=== PATIENT | female | born 1935 | race Caucasian/White ===

== ENCOUNTER 2016-11-01 14:11 | Inpatient (IN) | payer OTHER ==
[~2016-11-01] VITALS: Ht 162.6 cm; Wt 65.0 kg
[2016-11-01] MEDS ORDERED: SOD CHLORIDE 0.9% 1,000 ML IV STA (14:45)
[2016-11-01 15:10] LABS: BASOPHILS % 0.5 % (0.0-2.0); EOSINOPHILS % 0.2 % (0.0-7.0); HEMATOCRIT 34.2 % (37.0-47.0); HEMOGLOBIN 11.2 g/dl (12.0-16.0); LYMPHOCYTES # 1.1 10^3/ul (0.8-2.9); LYMPHOCYTES % 12.5 % (15.0-51.0); MEAN CORPUSCULAR HEMOGLOBIN 29.8 pg (29.0-33.0); MEAN CORPUSCULAR HGB CONC 32.7 g/dl (32.0-37.0); MEAN PLATELET VOLUME 10.5 fl (7.4-10.4); MONOCYTE # 0.7 10^3/ul (0.3-0.9); MONOCYTES % 8.5 % (0.0-11.0); NEUTROPHIL # 6.8 10^3/ul (1.6-7.5); PLATELET COUNT 284 10^3/UL (140-415); RED BLOOD COUNT 3.76 10^6/ul (4.20-5.40); RED CELL DISTRIBUTION WIDTH 12.1 % (11.5-14.5); WHITE BLOOD COUNT 8.7 10^3/ul (4.8-10.8)
[2016-11-01 15:30] LABS: INR 1.04; PROTIME 13.6 Sec (12.2-14.2); PT RATIO 1.1
[2016-11-01] MEDS ORDERED: AMLO5TAB4 PO (15:32)
[2016-11-01] MEDS ORDERED: ASPI-664 PO (15:33)
[2016-11-01] MEDS ORDERED: BISA10SU75 PR (15:34)
[2016-11-01] MEDS ORDERED: ATOR40TA68 PO (15:34)
[2016-11-01] MEDS ORDERED: CYAN50TA PO (15:35)
[2016-11-01] MEDS ORDERED: FAMO20TA18 PO (15:35)
--- NOTE | 2016-11-01 15:40 | RADRPT ---
PROCEDURE: XR Chest. CLINICAL INDICATION: Abdominal Pain TECHNIQUE: Single frontal view of the chest was obtained COMPARISON: None FINDINGS: There are low lung volumes. The cardiomediastinal silhouette is within normal limits considering po rtable technique and low lung volumes. There are atherosclerotic calcifications of the thoracic aorta. Linear opacities at both lung bases likely represent atelectasis and / or scarring. No pneumothorax, significant pleural effusion, or parenchymal consolidation is identified. There are degenerative changes of the visualized spine. IMPRESSION: 1. Low lung volumes with mild bibasilar atelectasis and / or scarring. 2. Thoracic aortic atherosclerotic disease. RPTAT: PP Physician Norma Date Time Electronically viewed and signed by Physician Norma on 11/01/2016 15:39 /
[2016-11-01] MEDS ORDERED: NA P230E RC (15:41)
[2016-11-01] MEDS ORDERED: LACT1CAP57 PO (15:42)
[2016-11-01] MEDS ORDERED: LEVO50TA74 PO (15:42)
[2016-11-01] MEDS ORDERED: SENN-53 PO (15:43)
[2016-11-01] MEDS ORDERED: TRAM-40 PO (15:45)
[2016-11-01] MEDS ORDERED: ACET325T33 PO (15:47)
[2016-11-01] MEDS ORDERED: CHOL500010 PO (15:48)
[2016-11-01 15:50] LABS: ALBUMIN 3.7 g/dl (3.3-4.9); ALBUMIN/GLOBULIN RATIO 0.94; ANION GAP 17 (8-16); BILIRUBIN,INDIRECT 0.2 mg/dl (0-1.1); BILIRUBIN,TOTAL 0.2 mg/dl (0.2-1.3); BLOOD UREA NITROGEN 14 mg/dl (7-20); CALCIUM 9.9 mg/dl (8.4-10.2); CARBON DIOXIDE 31 mmol/L (21-31); CHLORIDE 96 mmol/L (97-110); GLUCOSE 138 mg/dl (70-220); POTASSIUM 4.4 mmol/L (3.5-5.1); SODIUM 140 mmol/L (135-144); TOTAL PROTEIN 7.6 g/dl (6.1-8.1)
[2016-11-01 15:51] LABS: ALANINE AMINOTRANSFERASE 30 IU/L (13-69); ALKALINE PHOSPHATASE 82 IU/L (42-121); ASPARTATE AMINO TRANSFERASE 33 IU/L (15-46)
[2016-11-01] MEDS ORDERED: TUBE5VIA3 ID ×2 (15:51→15:53)
[2016-11-01 16:01] LABS: ADD UMIC NO; UR ASCORBIC ACID NEGATIVE (NEGATIVE); UR BACTERIA FEW /HPF (NONE SEEN); UR BILIRUBIN (Dip) NEGATIVE (NEGATIVE); UR BLOOD (Dip) NEGATIVE (NEGATIVE); UR CLARITY SLIGHTLY CLOUDY (CLEAR); UR COLOR YELLOW (YELLOW); UR GLUCOSE (Dip) NEGATIVE (NEGATIVE); UR KETONES (Dip) NEGATIVE (NEGATIVE); UR LEUKOCYTE ESTERASE (Dip) NEGATIVE Leu/ul (NEGATIVE); UR MUCUS FEW /HPF (NONE SEEN); UR NITRITE (Dip) NEGATIVE (NEGATIVE); UR RBC 4 /HPF (0-5); UR SPECIFIC GRAVITY (Dip) 1.019 (1.003-1.030); UR TOTAL PROTEIN (Dip) NEGATIVE (NEGATIVE); UR UROBILINOGEN (Dip) 2+ mg/dL (NEGATIVE)
[2016-11-01 16:04] LABS: TROPONIN-I < 0.012 ng/ml (0.00-0.12)
--- NOTE | 2016-11-01 16:22 | RADRPT ---
PROCEDURE: CT Brain without contrast. CLINICAL INDICATION: Altered mental status. TECHNIQUE: A CT of the brain without contrast was performed utilizing axial sections from the skul l base through the vertex. The patient was scanned without intravenous contrast enhancement. Sagitta l and coronal reformatted images were obtained using the data from the axial images. Total exam DLP is 850.75 mGy-cm. CTDIvol is 43.12 mGy. One or more of the following dose reduction techniques were used: Automated exposure control, adjustment of the mA and/or kV according to patient size, use of iterative reconstruction technique. COMPARISON: None available. FINDINGS: There is ill-defined encephalomalacia in the left centrum semiovale consistent with old infarct. Th ere is an old infarct in the left belle radiata with a 1.1 x 0.9 cm region of low attenuation. The re is no other acute or chronic infarct. There is enlargement of the ventricles and subarachnoid spaces consistent with atrophy. There is decreased attenuation of the periventricular white matter consistent with microangiopathic ischemic change. There is no intracranial hemorrhage or space-occupying lesion. There are vascular calcifications consistent with atherosclerosis. There is no skull fracture or lytic lesion. IMPRESSION: 1. Atrophy. 2. Microangiopathic ischemic change. 3. Atherosclerosis. 4. 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 Otherwise unremarkable noncontrast CT scan of the brain. RPTAT: QQ .Mike Tan MD, Date Time Electronically viewed and signed by .Mike Tan MD, MD on 11/01/2016 16:21 .R/
[2016-11-01 17:10] LABS: AADO2 Arterial 3.2 mmHg (7.0-24.0); Allen Test ACCEPTAB; Arterial Base Excess 4.5 mmol/L (-3.0-3); Arterial COHb 0.3 % (0.0-3.0); Arterial Fraction of Oxyhgb 97.4 % (93.0-99.0); Arterial HCO3 29.7 mmol/L (22.0-26.0); Arterial MetHb 0.5 % (0.0-1.5); Arterial Total Hemglobin 11.7 g/dl (12.0-18.0); MODE NASAL CANNULA
--- NOTE | 2016-11-01 17:34 | ERA ---
ER Documentation Chief Complaint Date/Time DATE: 11/01/16 TIME: 17:20 Chief Complaint BIB RA FOR EVAL OF ALOC FROM SNF HPI 80-year-old elderly woman brought in by status. Nursing staff state she has been more sleepy than usual since this morning beginning about 6 hours prior to my evaluation. She has had no fevers or chills, no vomiting or diarrhea. HPI supplemented by reviewing snf records, speaking to EMS, nursing staff. Patient was transported here by EMS without further complications. ROS All systems reviewed and are negative except as per history of present illness. Medications Home Meds Reported Medications Tuberculin,Purif.prot.deriv. (Tubersol) 5 Tub Unit/0.1 Ml Vial, 5 TUB ID QHS, VIAL SCREENING FOR 1 DAY 2ND STEP PPD. START DATE 11/10/16,END DATE 11/11/16 11/01/16 Tuberculin,Purif.prot.deriv. (Tubersol) 5 Tub Unit/0.1 Ml Vial, 0.1 ML ID QHS, VIAL SCREENING FOR 1 DAY 1ST STEP PPD.READ IN 72H.IF NEGATIVE GIVE 2 STEP IN 7 DAYS FROM FIRST DOSE. END DATE 11/01/16 11/01/16 Cholecalciferol (Vitamin D3) 5,000 Unit Tablet, 5000 UNIT PO DAILY, TAB 11/01/16 Acetaminophen* (Tylenol*) 325 Mg Tablet, 650 MG PO Q4H Y for MILD PAIN LEVEL 1-3 , TAB OR T>100F 11/01/16 Tramadol Hcl* (Ultram*) 50 Mg Tablet, 50 MG PO Q4H Y for PAIN LEVEL 4-6/10, TAB AND Q DAY FOR PRIOR TO WOUND CARE 11/01/16 Sennosides* (Senna Lax*) 8.6 Mg Tablet, 1 TAB PO QHS, TAB HOLD IF>2LARGE BMS/DAY 11/01/16 Levothyroxine Sodium* (Levothyroxine Sodium*) 50 Mcg Tablet, 50 MCG PO BEFORE BREAKFAST, #30 TAB 11/01/16 Lactobacillus Rhamnosus* (Culturelle*) 1 Each Cap.sprink, 1 CAP PO BID, CAP 11/01/16 Na Phos,M-B/Na Phos,Di-Ba (Fleet Enema Extra) 230 Ml Enema, 118 ML RC Q72H, ENEMA 11/01/16 Famotidine* (Famotidine*) 20 Mg Tablet, 20 MG PO DAILY, #30 TAB 11/01/16 Cyanocobalamin* (Vitamin B-12*) 50 Mcg Tablet, 50 MCG PO DAILY, TAB 11/01/16 Bisacodyl* (Bisacodyl*) 10 Mg Supp, 10 MG ID Q48H, SUPP 11/01/16 Atorvastatin* (Atorvastatin*) 40 Mg Tablet, 40 MG PO QHS, #30 TAB 11/01/16 Aspirin* (Aspirin* EC) 81 Mg Tablet.dr, 81 MG PO DAILY, TAB 11/01/16 Amlodipine Besylate* (Norvasc*) 5 Mg Tablet, 5 MG PO DAILY, TAB HOLD IF SBP<110 OR HR<60 11/01/16 Allergies Allergies: Coded Allergies: No Known Allergy (Unverified , 11/01/16) PMhx/Soc Chronic encephalopathy, previous stroke, bedbound state, hypothyroidism, hypertension, recent scalp laceration post stapling 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) Hx Alcohol Use: No Hx Substance Use: No Hx Tobacco Use: No Smoking Status: Never smoker FmHx Family History: No diabetes Physical Exam Vitals Vital Signs Date Time Temp Pulse Resp B/P Pulse Ox O2 Delivery O2 Flow Rate FiO2 11/01/16 14:50 98.8 69 18 147/83 99 Nasal Cannula 2.0 11/01/16 14:31 98.3 83 19 141/63 100 Physical Exam GENERAL: Elderly, chronically debilitated woman, dehydrated, afebrile HEENT: Dry mucous membranes, pink conjunctiva, no cervical spine deformity NEURO: Dilated fixed left pupil, right pupil reactive to light, eyes closed, nonverbal, diffuse muscular wasting and extremity contractures, no facial asymmetry CARDIAC: Regular rate and rhythm, no murmurs rubs or gallops LUNGS: Clear bilaterally no wheezing crackles or stridor ABDOMEN: Soft nontender, no guarding, no rigidity, no rebound, no psoas sign no obturator sign. SKIN: Warm and dry to touch, no abrasions, contusions, or hematomas, no lacerations, no ecchymosis, no target lesions, and without ulcers EXTREMITIES: No clubbing cyanosis or edema, bilateral lower extremity and upper extremity contractures PSYCH: Unable to assess Result Diagram: 11/01/16 1500 11/01/16 1500 Results 24 hrs Laboratory Tests Test 11/01/16 14:57 11/01/16 15:00 11/01/16 15:09 11/01/16 16:42 Bedside Glucose 136mg/dL White Blood Count 8.710^3/ul Red Blood Count 3.7610^6/ul Hemoglobin 11.2g/dl Hematocrit 34.2% Mean Corpuscular Volume 91.0fl Mean Corpuscular Hemoglobin 29.8pg Mean Corpuscular Hemoglobin Concent 32.7g/dl Red Cell Distribution Width 12.1% Platelet Count 20896^3/UL Mean Platelet Volume 10.5fl Neutrophils % 78.0% Lymphocytes % 12.5% Monocytes % 8.5% Eosinophils % 0.2% Basophils % 0.5% Nucleated Red Blood Cells % 0.0/100WBC Neutrophils # 6.810^3/ul Lymphocytes # 1.110^3/ul Monocytes # 0.710^3/ul Eosinophils # 0.010^3/ul Basophils # 0.010^3/ul Nucleated Red Blood Cells # 0.010^3/ul Prothrombin Time 13.6Sec Prothrombin Time Ratio 1.1 INR International Normalized Ratio 1.04 Sodium Level 140mmol/L Potassium Level 4.4mmol/L Chloride Level 96mmol/L Carbon Dioxide Level 31mmol/L Anion Gap 17 Blood Urea Nitrogen 14mg/dl Creatinine 0.50mg/dl Glucose Level 138mg/dl Calcium Level 9.9mg/dl Total Bilirubin 0.2mg/dl Direct Bilirubin 0.00mg/dl Indirect Bilirubin 0.2mg/dl Aspartate Amino Transf (AST/SGOT) 33IU/L Alanine Aminotransferase (ALT/SGPT) 30IU/L Alkaline Phosphatase 82IU/L Troponin I < 0.012ng/ml Total Protein 7.6g/dl Albumin 3.7g/dl Globulin 3.90g/dl Albumin/Globulin Ratio 0.94 Lipase 80U/L Urine Color YELLOW Urine Clarity SLIGHTLY CLOUDY Urine pH 7.0 Urine Specific [place] 1.019 Urine Ketones NEGATIVEmg/dL Urine Nitrite NEGATIVEmg/dL Urine Bilirubin NEGATIVEmg/dL Urine Urobilinogen 2+mg/dL Urine Leukocyte Esterase NEGATIVELeu/ul Urine Microscopic RBC 4/HPF Urine Microscopic WBC 2/HPF Urine Bacteria FEW/HPF Urine Mucus FEW/HPF Urine Hemoglobin NEGATIVEmg/dL Urine Glucose NEGATIVEmg/dL Urine Total Protein NEGATIVEmg/dl Blood Gas Specimen Source Blood arterial Arterial Blood Date Drawn 11/01/2016 4:51:33 PM Arterial Blood pH (Temp corrected) 7.421 Arterial Blood pCO2 (Temp correct) 46.7mmhg Arterial Blood pO2 (Temp corrected) 134.1mmHG Arterial Blood HCO3 29.7mmol/L Arterial Blood Base Excess 4.5mmol/L Arterial Blood Oxygen Saturation 98.2mmHG Steve Test ACCEPTAB Arterial Blood Gas Puncture Site Right Radial Arterial Blood Carboxyhemoglobin 0.3% Arterial Blood Methemoglobin 0.5% Blood Gas A-a O2 Differential 3.2mmHg Oxyhemoglobin Percent 97.4% Total Hemoglobin 11.7g/dl Blood Gas Temperature 37.0C Blood Gas Modality NASAL CANNULA FiO2 27.0% Blood Gas Notified Whom RH Blood Gas Notified Time 11/01/2016 5:10:00 PM Current Medications Medications (Trade) Dose Ordered Sig/Jean Route PRN Reason Start Time Stop Time Status Last Admin Dose Admin Sodium Chloride (NS) 1,000 ml @ 1,000 mls/hr Q1H STAT IV 11/01/16 14:45 11/01/16 15:44 DC 11/01/16 15:40 Procedures/MDM IV line was established patient was placed on nurse monitoring rhythm strip revealed a sinus rhythm at about 70 bpm with upright P and T waves. Patient was afebrile. I administered 1 L normal saline intravenously for dehydration. One view chest x-ray performed, read by me revealed atelectatic changes bilaterally, no acute infiltrates, no pneumothorax. CT scan of the brain was performed revealing chronic changes, no acute bleed mass or shift. EKG performed, read by me: 71 bpm, normal sinus rhythm, normal axis, no acute ST segment changes, narrow QRS complex, with good R-wave progression in precordial leads. CBC was unremarkable, electrolytes normal, liver function tests normal, troponin negative. ABG revealed a pH of 7.42, PCO2 47, PO2 160. Normal ABG. Urine analysis was negative for infection. Patient's vital signs are normal but the report is that her mental status is less than usual, considerations include both benzodiazepine and opioid overdose as well as postictal state, although patient has no history of seizure disorder. Workup was unremarkable in the ED and she will be admitted to telemetry setting for continued medical management and observation. Departure Diagnosis: Primary Impression: Acute encephalopathy Additional Impressions: Dehydration Functional quadriplegia Condition: Fair DEVIKA NAIR MD Nov 01, 2016 17:31
[2016-11-01 18:51] VITALS: TEMP 98.7
[2016-11-01] MEDS: SOD CHLORIDE 0.9% 1,000 ML IV SCH (18:55)
[2016-11-01 23:00] VITALS: BP 132/68; PULSE 78; RESP 20; Ht 162.6 cm; Wt 65.0 kg
[2016-11-01 23:28] VITALS: PULSE 68
[2016-11-02] VITALS (12 sets, daily range): BP systolic 130–152; BP diastolic 57–69; PULSE 57–79; RESP 16–20
[2016-11-02] MEDS ORDERED: morphine 10 MG INJ IM PRN (08:00)
[2016-11-02] MEDS ORDERED: ONDANSETRON 4 MG INJ IV PRN (08:00)
[2016-11-02] MEDS: SOD CHLORIDE 0.9% 1,000 ML IV SCH ×2 (09:47→15:00)
[2016-11-02] MEDS: HEPARIN 5,000 UNIT/0.5 ML VIAL SC SCH ×2 (09:48→21:17)
[2016-11-02] MEDS: ASPIRIN 300 MG SUPP PR SCH (09:49)
[2016-11-02 11:10] LABS: BASOPHILS % 0.6 % (0.0-2.0); EOSINOPHILS # 0.2 10^3/ul (0.0-0.5); EOSINOPHILS % 2.3 % (0.0-7.0); HEMATOCRIT 32.6 % (37.0-47.0); HEMOGLOBIN 10.6 g/dl (12.0-16.0); LYMPHOCYTES # 1.3 10^3/ul (0.8-2.9); LYMPHOCYTES % 19.4 % (15.0-51.0); MEAN CORPUSCULAR HEMOGLOBIN 29.9 pg (29.0-33.0); MEAN CORPUSCULAR HGB CONC 32.5 g/dl (32.0-37.0); MEAN CORPUSCULAR VOLUME 91.8 fl (82.0-101.0); MONOCYTE # 0.7 10^3/ul (0.3-0.9); MONOCYTES % 9.6 % (0.0-11.0); NEUTROPHIL # 4.7 10^3/ul (1.6-7.5); NEUTROPHILS % 67.8 % (39.0-77.0); PLATELET COUNT 242 10^3/UL (140-415); RED BLOOD COUNT 3.55 10^6/ul (4.20-5.40); WHITE BLOOD COUNT 6.9 10^3/ul (4.8-10.8)
[2016-11-02 11:18] LABS: ANION GAP 15 (8-16); BLOOD UREA NITROGEN 11 mg/dl (7-20); CALCIUM 9.3 mg/dl (8.4-10.2); CARBON DIOXIDE 31 mmol/L (21-31); CHLORIDE 100 mmol/L (97-110); CHOL/HDL RATIO 4.1 RATIO; CHOLESTEROL 130 mg/dl (100-200); CREATININE 0.49 mg/dl (0.44-1.00); GLUCOSE 103 mg/dl (70-220); HDL CHOLESTEROL 31 mg/dl (33-92); MAGNESIUM 2.3 mg/dl (1.7-2.5); PHOSPHORUS 3.6 mg/dl (2.5-4.9); POTASSIUM 4.1 mmol/L (3.5-5.1); SODIUM 142 mmol/L (135-144); TRIGLYCERIDES 87 mg/dl (0-149)
[2016-11-02 11:26] LABS: TROPONIN-I < 0.012 ng/ml (0.00-0.12)
--- NOTE | 2016-11-02 15:44 | PN ---
Date/Time of Note Date/Time of Note DATE: 11/02/16 TIME: 15:40 Assessment/Plan VTE Prophylaxis VTE Prophylaxis Intervention: heparin Lines/Catheters IV [facility] Urinary Cath still in place: Yes Reason Cath still needed: urinary retention Assessment/Plan Chief Complaint/Hosp Course Assessment and plan: 80-year-old female past medical history of Chronic encephalopathy, previous stroke, bedbound state, hypothyroidism, hypertension, recent scalp laceration post stapling, who presents with acute on chronic encephalopathy, now improved. 1. Altered mental status: Slightly improved now. Patient does have a history of prior stroke and chronic encephalopathy. Head CT was negative for acute findings. Patient unable to get an MRI of the brain at this time -We will get speech therapy consult, consider carotid Dopplers, echocardiogram. 2. Hypothyroidism: Monitor for now 3. Hypertension: Blood pressure stable continue to monitor for now 4. GI prophylaxis: PPI. Problems: Subjective 24 Hr Interval Summary Free Text/Dictation Patient a bit more alert today. Not able to get an MRI of the brain as she cannot consent to the procedure, and family has not been able to be found. Exam/Review of Systems Vital Signs Vitals Vital Signs Date Time Temp Pulse Resp B/P Pulse Ox O2 Delivery O2 Flow Rate FiO2 11/02/16 12:09 98.2 60 17 130/60 99 11/02/16 08:33 Nasal Cannula 2.0 Intake and Output 11/01/16 11/01/16 11/02/16 15:00 23:00 07:00 Output Total 450 ml Balance -450 ml Exam GENERAL: Elderly, chronically debilitated woman, dehydrated, afebrile, opens eyes HEENT: Dry mucous membranes, pink conjunctiva, no cervical spine deformity NEURO: Some dilated fixed left pupil, right pupil reactive to light, eyes closed , nonverbal, diffuse muscular wasting and extremity contractures, no facial asymmetry CARDIAC: Regular rate and rhythm, no murmurs rubs or gallops LUNGS: Clear bilaterally no wheezing crackles or stridor ABDOMEN: Soft nontender, no guarding, no rigidity, no rebound, no psoas sign no obturator sign. SKIN: Warm and dry to touch, no abrasions, contusions, or hematomas, no lacerations, no ecchymosis, no target lesions, and without ulcers EXTREMITIES: No clubbing cyanosis or edema, bilateral lower extremity and upper extremity contractures PSYCH: Unable to assess Results Result Diagram: 11/02/16 1035 11/02/16 1035 Results 24 hrs Laboratory Tests Test 11/01/16 16:42 11/02/16 08:40 11/02/16 10:30 11/02/16 10:35 Blood Gas Specimen Source Blood arterial Arterial Blood Date Drawn 11/01/2016 4:51:33 PM Arterial Blood pH (Temp corrected) 7.421 Arterial Blood pCO2 (Temp correct) 46.7 H Arterial Blood pO2 (Temp corrected) 134.1 H Arterial Blood HCO3 29.7 H Arterial Blood Base Excess 4.5 H Arterial Blood Oxygen Saturation 98.2 Steve Test ACCEPTAB Arterial Blood Gas Puncture Site Right Radial Arterial Blood Carboxyhemoglobin 0.3 Arterial Blood Methemoglobin 0.5 Blood Gas A-a O2 Differential 3.2 L Oxyhemoglobin Percent 97.4 Total Hemoglobin 11.7 L Blood Gas Temperature 37.0 Blood Gas Modality NASAL CANNULA FiO2 27.0 Blood Gas Notified Whom RH Blood Gas Notified Time 11/01/2016 5:10:00 PM Bedside Glucose 97 Free Thyroxine 1.05 White Blood Count 6.9 # Red Blood Count 3.55 L Hemoglobin 10.6 L Hematocrit 32.6 L Mean Corpuscular Volume 91.8 Mean Corpuscular Hemoglobin 29.9 Mean Corpuscular Hemoglobin Concent 32.5 Red Cell Distribution Width 12.0 Platelet Count 242 Mean Platelet Volume 11.0 H Neutrophils % 67.8 Lymphocytes % 19.4 Monocytes % 9.6 Eosinophils % 2.3 Basophils % 0.6 Nucleated Red Blood Cells % 0.0 Neutrophils # 4.7 Lymphocytes # 1.3 Monocytes # 0.7 Eosinophils # 0.2 Basophils # 0.0 Nucleated Red Blood Cells # 0.0 Sodium Level 142 Potassium Level 4.1 Chloride Level 100 Carbon Dioxide Level 31 Anion Gap 15 Blood Urea Nitrogen 11 Creatinine 0.49 Glucose Level 103 Hemoglobin A1c 5.8 Calcium Level 9.3 Phosphorus Level 3.6 Magnesium Level 2.3 Troponin I < 0.012 Triglycerides Level 87 Cholesterol Level 130 LDL Cholesterol, Calculated 82 HDL Cholesterol 31 L Cholesterol/HDL Ratio 4.1 Thyroid Stimulating Hormone (TSH) 12.300 H Test 11/02/16 14:15 Troponin I < 0.012 Medications Medications Current Medications Sodium Chloride (NS) 1,000 ml @ 100 mls/hr Q10H IV Last administered on 09:47; Admin Dose 100 MLS/HR; Start 11/01/16 at 19:00 Aspirin (Aspirin) 162 mg DAILY CA Last administered on 11/02/16 09:49; Admin Dose 162 MG; Start 11/02/16 at 09:00 Ondansetron HCl (Zofran Inj) 4 mg Q4H PRN IV NAUSEA AND/OR VOMITING; Start at 08:00 Morphine Sulfate (morphine) 2 mg Q4H PRN IM PAIN LEVEL 7-10; Start 11/02/16 at 08:00 Heparin Sodium (Porcine) (Heparin (5000 Units/0.5 ml)) 5,000 unit BID SC Last administered on 11/02/16 09:48; Admin Dose 5,000 UNIT; Start 11/02/16 at 09:00 GÓMEZ CHRISTIANSON Nov 02, 2016 15:43
--- NOTE | 2016-11-02 17:24 | RADRPT ---
PROCEDURE: US carotid arteries. CLINICAL INDICATION: Syncope. Dizziness. TECHNIQUE: Multiple sonographic images of the carotid arteries and vertebral arteries were obtaine d utilizing dior scale, duplex, and color-flow imaging. The images were reviewed on a PACS workstati on. COMPARISON: No prior studies are available for comparison. FINDINGS: Evaluation of the right carotid bifurcation region reveals mild atherosclerotic disease. Evaluation of the left carotid bifurcation region reveals mild atherosclerotic disease. There is antegrade flow within the vertebral arteries bilaterally. RIGHT CAROTID MEASUREMENTS: Common Carotid [id number] (cm/sec) Internal Carotid Artery 54 (cm/sec) External Carotid Artery 144 (cm/sec) Vertebral Artery 61 (cm/sec) Internal Carotid/Common Carotid0.8 LEFT CAROTID MEASUREMENTS: Common Carotid Qeoywx94 (cm/sec) Internal Carotid Artery 69 (cm/sec) External Carotid Artery 130 (cm/sec) Vertebral Artery 47 (cm/sec) Internal Carotid/Common Carotid0.9 Validated velocity measurements with angiographic measurements. Velocity criteria are extrapolated f rom diameter data as defined by the Society of Radiologists in Ultrasound Consensus Conference. Radi ology 2003; 229;340-346. This study does indirectly reference the measurement of the distal ICA rafael meter as the denominator for stenosis measurement. IMPRESSION: 1. Less than 50% stenosis bilaterally in the internal carotid arteries. 2. Normal antegrade flow in the vertebral arteries bilaterally. RPTAT: QQ SRU Consensus Conference Criteria for the Diagnosis of Carotid Artery Stenosis* Degree of Stenosis, % ICA PSV, cm/sec Plaque Estimate, % ICA/CCA PSV Ratio Normal <125 None <2.0 <50 <125 <50 <2.0 50 69 125-230 >50 2.0-4.0 >70 but less than near occlusion >230 >50 <4.0 Near occlusion High, low, or undetectable Visible Variable Total occlusion Undetectable Visible, no detectable lumen Not applicable *Cartoid artery stenosis: dior-scale and Doppler US diagnosis. Society of Radiologists in Ultrasound Consensus Conference. Radiology 2003; 229: 340-346 .Mike Tan MD, Date Time Electronically viewed and signed by .Mike Tan MD, on 11/02/2016 17:24 .R/
[2016-11-03] VITALS (12 sets, daily range): BP systolic 125–167; BP diastolic 60–76; PULSE 64–111; RESP 16–20
[2016-11-03] MEDS: SOD CHLORIDE 0.9% 1,000 ML IV SCH ×3 (01:00→20:31)
[2016-11-03] MEDS: PANTOPRAZOLE 40 MG INJ IV SCH (06:21)
[2016-11-03] MEDS: ASPIRIN 300 MG SUPP PR SCH (09:21)
[2016-11-03] MEDS: HEPARIN 5,000 UNIT/0.5 ML VIAL SC SCH ×2 (09:28→20:37)
--- NOTE | 2016-11-03 11:48 | PDOCDIS ---
Discharge Instructions CONDITION Patient Condition: Stable HOME CARE INSTRUCTIONS: Special Diet: JAVIERO GÓMEZ CHRISTIANSON Nov 03, 2016 11:48
--- NOTE | 2016-11-03 11:53 | DS ---
Date/Time of Note Date/Time of Note DATE: 11/03/16 TIME: 11:49 Discharge Summary Admission/Discharge Info Admit Date/Time Nov 01, 2016 at 17:09 Discharge Date/Time Discharge Diagnosis 1. Altered mental status: improved now. Ruled out for acute stroke. 2. Hypothyroidism 3. Hypertension 4. Chronic encephalopathy 5. Prior stroke 6. Scalp laceration status post martha on prior admission Patient Condition: Stable Hospital Course 80-year-old elderly woman brought in EMS from intermediate. Nursing staff there stated she has been more sleepy than usual since this morning beginning about 6 hours prior to emergency room evaluation. She has had no fevers or chills, no vomiting or diarrhea. HPI supplemented by reviewing intermediate records, speaking to EMS, nursing staff. Patient was transported here by EMS without further complications. Patient was admitted to telemetry floor, underwent head CT that was negative for any acute findings. She was not able to undergo MRI of the brain because there was no one to consent her for this and questionnaire for MRI could not be performed. Carotid Doppler study showed less than 50% bilateral carotid artery stenosis. Over the course of her hospital stay she became more alert, she returned back to her baseline status. Her echocardiogram was performed as well results was pending by the time of his discharge. Because she is back at her baseline status will discharge her back to nursing facility today. Please see printed medical reconciliation list for full discharge medication list. Of note, her TSH was found to be high, but her free T4 levels were normal. Home Meds Reported Medications Tuberculin,Purif.prot.deriv. (Tubersol) 5 Tub Unit/0.1 Ml Vial, 5 TUB ID QHS, VIAL SCREENING FOR 1 DAY 2ND STEP PPD. START DATE 11/10/16,END DATE 11/11/16 11/01/16 Tuberculin,Purif.prot.deriv. (Tubersol) 5 Tub Unit/0.1 Ml Vial, 0.1 ML ID QHS, VIAL SCREENING FOR 1 DAY 1ST STEP PPD.READ IN 72H.IF NEGATIVE GIVE 2 STEP IN 7 DAYS FROM FIRST DOSE. END DATE 11/01/16 11/01/16 Cholecalciferol (Vitamin D3) 5,000 Unit Tablet, 5000 UNIT PO DAILY, TAB 11/01/16 Acetaminophen* (Tylenol*) 325 Mg Tablet, 650 MG PO Q4H Y for MILD PAIN LEVEL 1-3 , TAB OR T>100F 11/01/16 Tramadol Hcl* (Ultram*) 50 Mg Tablet, 50 MG PO Q4H Y for PAIN LEVEL 4-6/10, TAB AND Q DAY FOR PRIOR TO WOUND CARE 11/01/16 Sennosides* (Senna Lax*) 8.6 Mg Tablet, 1 TAB PO QHS, TAB HOLD IF>2LARGE BMS/DAY 11/01/16 Levothyroxine Sodium* (Levothyroxine Sodium*) 50 Mcg Tablet, 50 MCG PO BEFORE BREAKFAST, #30 TAB 11/01/16 Lactobacillus Rhamnosus* (Culturelle*) 1 Each Cap.sprink, 1 CAP PO BID, CAP 11/01/16 Na Phos,M-B/Na Phos,Di-Ba (Fleet Enema Extra) 230 Ml Enema, 118 ML RC Q72H, ENEMA 11/01/16 Famotidine* (Famotidine*) 20 Mg Tablet, 20 MG PO DAILY, #30 TAB 11/01/16 Cyanocobalamin* (Vitamin B-12*) 50 Mcg Tablet, 50 MCG PO DAILY, TAB 11/01/16 Bisacodyl* (Bisacodyl*) 10 Mg Supp, 10 MG CA Q48H, SUPP 11/01/16 Atorvastatin* (Atorvastatin*) 40 Mg Tablet, 40 MG PO QHS, #30 TAB 11/01/16 Aspirin* (Aspirin* EC) 81 Mg Tablet.dr, 81 MG PO DAILY, TAB 11/01/16 Amlodipine Besylate* (Norvasc*) 5 Mg Tablet, 5 MG PO DAILY, TAB HOLD IF SBP<110 OR HR<60 11/01/16 Primary Care Provider Bill Crain Time spent on discharge: > 30 minutes Pending Labs Laboratory Tests Test 11/02/16 14:15 11/02/16 18:25 Troponin I < 0.012ng/ml (0.00-0.12) Ammonia < 9umol/l (9-30) GÓMEZ CHRISTIANSON Nov 03, 2016 11:53
--- NOTE | 2016-11-03 14:04 | RADRPT ---
Echocardiogram Report Patient Name: ADALI HAM Gender: Female Date: 1935 Study Date: 03-Nov-2016 Setter Helper: ROYER Location: I Ref. Physician: GÓMEZ CHRISTIANSON Quality: Adequate Procedures: Transthoracic echocardiogram with 2D, M-Mode, and doppler examination. Indications: Syncope. 2D/M Mode Doppler Measurement Value Normal Ranges Measurement Value Normal Ranges AoR Diam MM 2.8 cm AV Peak Luis 1.4 m/sec LVIDd 2D 2.3 3.5 - 5.6 cm AV Peak PG 7.8 mmHg LVIDs 2D 1.5 2.1 - 4.1 cm LVOT Peak Luis 1.2 m/sec LVPWd 2D 1.2 0.6 - 1.1 cm LVOT Peak PG 5.9 mmHg IVSd 2D 1.7 0.6 - 1.1 cm MV E Peak Luis 0.8 m/sec EDV 2D 17.5 cm3 MV A Peak Luis 1.8 m/sec ESV 2D 3.4 cm3 MV E/A 0.5 LA Dimen 2D 3.2 2.3 - 4.0 cm MV E/A 0.5 Findings Left Ventricle: Hyperdynamic left ventricular systolic function. Mild to moderate concentric left ventricular hypertrophy. Reduced left ventricular cavity size. Ejection fraction is visually estimated at 65 %. Tissue Doppler/Mitral Doppler indices are consistent with impaired relaxation (Stage I diastolic dysfunction). E/E`=12. Moderate left ventricular outflow tract obstruction, patient unable to Valsalva. Velocity4.00 m/sec. Max PG65.00 mmHg. Right Ventricle: Normal right ventricular size. Left Atrium: The left atrium is normal in size. Right Atrium: The right atrium is normal in size. Atrial Septum: Normal atrial septum. Mitral Valve: Mild to moderate mitral annular calcification. Trace mitral regurgitation. Aortic Valve: Normal appearance of the aortic valve. No significant aortic stenosis or insufficiency. Tricuspid Valve: Normal appearance of the tricuspid valve. No evidence of tricuspid regurgitation. Pulmonic Valve: Pulmonic valve not well visualized. Pericardium: Normal pericardium with no significant pericardial effusion. Aorta: Normal aortic root. IVC: Normal size and normal respiratory collapse consistent with normal right atrial pressure. Pulmonary Artery: Not well visualized. Conclusions 1.Hyperdynamic left ventricular systolic function. Mild to moderate concentric left ventricular hypertrophy. Reduced left ventricular cavity size. Ejection fraction is visually estimated at 65 %. Tissue Doppler/Mitral Doppler indices are consistent with impaired relaxation (Stage I diastolic dysfunction). E/E`=12. 2.Normal right ventricular size. 3.Mild to moderate mitral annular calcification. Trace mitral regurgitation. 4.Normal appearance of the aortic valve. No significant aortic stenosis or insufficiency. 5.Normal appearance of the tricuspid valve. No evidence of tricuspid regurgitation. 6.Normal pericardium with no significant pericardial effusion. Electronically Signed By: Taco Naylor 03-Nov-2016 14:04:11 -0700 Patient Name: ADALI HAM Study Date: 03-Nov-2016 [id number]
[2016-11-04] VITALS (13 sets, daily range): BP systolic 108–171; BP diastolic 55–74; PULSE 56–71; RESP 18–20
[2016-11-04] MEDS: PANTOPRAZOLE 40 MG INJ IV SCH (06:15)
[2016-11-04] MEDS: SOD CHLORIDE 0.9% 1,000 ML IV SCH ×2 (06:16→17:24)
--- NOTE | 2016-11-04 07:21 | PQ ---
Date/Time of Note Date/Time of Note DATE: 11/04/16 TIME: 07:11 Physician Query Documentation Clarification Dear Dr. Cochran, A review of the medical record found a need for documentation clarification. Discharge Diagnosis 1. Altered mental status: improved now. Ruled out for acute stroke. 2. Hypothyroidism 3. Hypertension 4. Chronic encephalopathy 5. Prior stroke Please clarify the suspected etiology of AMS. To facilitate accurate and complete coding, please sandip ( x ) the suspected diagnosis that apply: ( ) Other encephalopathy ( ) Metabolic encephalopathy ( ) unable to determine ( ) Others Please provide your response by clicking edit document, making your choice ( x ), click ok/save and finally click sign. You may also document your response on your progress notes. Thank you for your time. With appreciation, Terrell Jarrett RN, BSN, CCS, CCDS Clinical Web Application Developer Health Information Management, CDI and Coding Services [phone] Room # 1525 - [address]~ [id number] TERRELL JARRETT Nov 04, 2016 07:21
[2016-11-04] MEDS: HEPARIN 5,000 UNIT/0.5 ML VIAL SC SCH ×2 (09:08→21:00)
[2016-11-04] MEDS: ASPIRIN 300 MG SUPP PR SCH (09:14)
--- NOTE | 2016-11-04 18:03 | PN ---
Date/Time of Note Date/Time of Note DATE: 11/04/16 TIME: 18:01 Assessment/Plan VTE Prophylaxis VTE Prophylaxis Intervention: SCD's Lines/Catheters IV Catheter Type (from Nrsg): Peripheral IV Urinary Cath still in place: No Assessment/Plan Assessment/Plan 80 yo F with pmhx hypothyroid and HTN admitted for AMS, now reportedly back to baseline? 1. Altered mental status: improved now. Ruled out for acute stroke. MRI pending 2. Hypothyroidism 3. Hypertension 4. Chronic encephalopathy 5. Prior stroke 6. Scalp laceration status post martha on prior admission anticipate dc back to facility in AM cont all home meds except tramadol Subjective 24 Hr Interval Summary Free Text/Dictation Pt at MRI at time of my attempted evaluation Exam/Review of Systems Vital Signs Vitals Vital Signs Date Time Temp Pulse Resp B/P Pulse Ox O2 Delivery O2 Flow Rate FiO2 11/04/16 16:11 56 11/04/16 15:48 98.1 18 145/65 98 11/04/16 08:00 Nasal Cannula 2.0 Intake and Output 11/03/16 11/03/16 11/04/16 15:00 23:00 07:00 Intake Total 0 ml 1000 ml Output Total 350 ml 375 ml Balance -350 ml 625 ml Exam unable to personally evaluate pt today as not in room at time of my attempted eval Results Result Diagram: 11/02/16 1035 11/02/16 1035 Medications Medications Current Medications Sodium Chloride (NS) 1,000 ml @ 100 mls/hr Q10H IV Last administered on 17:24; Admin Dose 100 MLS/HR; Start 11/01/16 at 19:00 Ondansetron HCl (Zofran Inj) 4 mg Q4H PRN IV NAUSEA AND/OR VOMITING; Start at 08:00 Morphine Sulfate (morphine) 2 mg Q4H PRN IM PAIN LEVEL 7-10; Start 11/02/16 at 08:00 Heparin Sodium (Porcine) (Heparin (5000 Units/0.5 ml)) 5,000 unit BID SC Last administered on 11/04/16 09:08; Admin Dose 5,000 UNIT; Start 11/02/16 at 09:00 Pantoprazole (Protonix Iv) 40 mg DAILY@06 IV Last administered on 7/24/17at 06: 15; Admin Dose 40 MG; Start 11/03/16 at 06:00 Aspirin (Halfprin) 162 mg DAILY PO ; Start 11/05/16 at 09:00 CAROL GUADARRAMA MD Nov 04, 2016 18:03
[2016-11-04] MEDS ORDERED: BISACODYL 10 MG SUPP PR SCH (18:30)
[2016-11-04] MEDS ORDERED: ACETAMINOPHEN 325 MG TAB PO PRN (18:30)
--- NOTE | 2016-11-04 19:53 | RADRPT ---
PROCEDURE: MR Brain without contrast. CLINICAL INDICATION: Altered mental status, evaluate for intracranial pathology. TECHNIQUE: An MRI of the brain was performed without contra utilizing the following sequences: Sa gittal T1 weighted, sagittal FLAIR, axial T1, axial FLAIR, axial T2 weighted, axial diffusion weight ed, axial ADC mapping. Images were reviewed on a PACS workstation. COMPARISON: CT head 11/01/2016 FINDINGS: Diffusion weighted sequences demonstrate diffusion restriction involving the paramedian left frontal / parietal lobe, extending inferiorly to the level of the left cingulate gyrus, suggestive of acute /recent infarct. There is also a mild amount of diffusion restriction involving the left posterior corpus callosum as well as the paramedian left occipital lobe (axial series image 17). There is ass ociated moderate gyral swelling on the T2 / FLAIR sequences in these regions. There is a focal area of diffusion restriction involving the right pradip (axial series image 11), with subtle area of incr eased FLAIR signal in this region. There is no intracranial hemorrhage, extra-axial fluid collectio n, mass lesion, midline shift or hydrocephalous. There is baseline of moderate prominence of the ce rebral sulci, lateral and third ventricles. There is asymmetric severe volume loss involving the torey ateral medial temporal lobes. The basal cisterns are patent. There is a baseline of moderate patchy and confluent periventricular and subcortical white matter lesions. There are well-circumscr ibed areas of encephalomalacia involving the bilateral basal ganglia and left sub belle radiata whi te matter. There is also well-circumscribed encephalomalacia involving the inferior right cerebella r hemisphere. The brainstem and cerebellum are normal in appearance. The basal cisterns are patent . Normal flow voids are visible the proximal intracranial arteries and dural sinuses, indicating pa tency. The midline structures are intact. The paranasal sinuses, mastoid air cells and middle ear cavities are normally aerated. The orbits, calvarium and extracranial soft tissues are normal in appearance. The cerebellopontine angles are no rmal. No evidence of internal acoustic canal or cerebellopontine angle mass. IMPRESSION: 1. Acute/recent infarct involving the left anterior cerebral artery distribution with diffusion res triction extending from the anterior - superior left frontal lobe posteriorly to the level of the co rpus callosum. 2. Acute/recent infarct involving the left splenium of the corpus callosum as well as the paramedia n left occipital lobe. 3. Acute/recent infarct involving the right pradip. 4. No intracranial hemorrhage, mass lesion or hydrocephalous. 5. Baseline of moderate peripheral and central cerebral volume loss, with severe asymmetric volume loss involving the medial temporal lobes. This is nonspecific, however may be related to neural deg enerative disease such as Alzheimer's disease. 6. Moderate patchy and confluent white matter lesions, likely related to chronic microangiopathic c hanges. 7. Multiple areas of remote lacunar infarcts involving the bilateral ganglia and right cerebellar h emisphere and left belle radiata white matter. The above findings were discussed with Patient's Nurse Edmundo by telephone on 11/04/2016 7:49:53 PM. RPTAT: HGAS .Boris Huerta MD, Date Time Electronically viewed and signed by .Boris Huerta MD, on 11/04/2016 19:53 .S/
[2016-11-04] MEDS: SENNA TAB PO SCH (20:35)
[2016-11-04] MEDS: ATORVASTATIN 40 MG TAB PO SCH (20:39)
[2016-11-04] MEDS: LACTOBACILLUS RHAMNOSUS CAP PO SCH (20:39)
[2016-11-05] VITALS (12 sets, daily range): BP systolic 132–161; BP diastolic 60–72; PULSE 52–99; RESP 17–21
[2016-11-05] MEDS: SOD CHLORIDE 0.9% 1,000 ML IV SCH ×4 (02:14→22:51)
[2016-11-05] MEDS: PANTOPRAZOLE 40 MG INJ IV SCH (05:44)
[2016-11-05] MEDS: LEVOTHYROXINE 50 MCG TAB PO SCH ×2 (06:08→09:12)
[2016-11-05] MEDS ORDERED: ASPIRIN (EC) 81 MG TAB PO SCH (09:00)
[2016-11-05] MEDS: ASPIRIN (EC) 81 MG TAB PO SCH (09:11)
[2016-11-05] MEDS: FAMOTIDINE 20 MG TAB PO SCH (09:11)
[2016-11-05] MEDS: CYANOCOBALAMIN 100 MCG TAB PO SCH (09:11)
[2016-11-05] MEDS: LACTOBACILLUS RHAMNOSUS CAP PO SCH ×2 (09:11→20:25)
[2016-11-05] MEDS: CHOLECALCIFEROL 1,000 UNIT TAB PO SCH (09:12)
[2016-11-05] MEDS: AMLODIPINE 5 MG TAB PO SCH (09:12)
[2016-11-05] MEDS: HEPARIN 5,000 UNIT/0.5 ML VIAL SC SCH ×2 (09:13→20:32)
--- NOTE | 2016-11-05 14:02 | PN ---
Date/Time of Note Date/Time of Note DATE: 11/05/16 TIME: 14:01 Assessment/Plan VTE Prophylaxis VTE Prophylaxis Intervention: SCD's Lines/Catheters IV Catheter Type (from Nrs): Peripheral IV Urinary Cath still in place: No Assessment/Plan Assessment/Plan 80 yo F with pmhx hypothyroid and HTN admitted for AMS, now reportedly back to baseline? I called the SNF pt was at prior to admission ([facility]). Per facility, pt is aphasic at baseline. Appears to track to track to voice, only nods to commands/questions, doesn't actually respond meaningfully. Also is basically bedbound 1. Altered mental status: MRI with multiple small acute strokes though mental status is back to pt's baseline neuro cs 2. Hypothyroidism 3. Hypertension 4. Chronic encephalopathy 5. Prior stroke 6. Scalp laceration status post martha on prior admission cont all home meds except tramadol discharge back to [facility] pending neuro eval Subjective 24 Hr Interval Summary Free Text/Dictation MRI overnight notable for multiple small strokes on my eval this AM, pt appears to track to voice, blinks to threat, but is nonverbal. Also does not follow commands Exam/Review of Systems Vital Signs Vitals Vital Signs Date Time Temp Pulse Resp B/P Pulse Ox O2 Delivery O2 Flow Rate FiO2 11/05/16 12:01 79 11/05/16 11:43 97.1 19 132/67 98 11/05/16 08:30 2.0 11/04/16 19:00 Nasal Cannula Intake and Output 11/04/16 11/04/16 11/05/16 15:00 23:00 07:00 Intake Total 25 ml 1000 ml Output Total 900 ml Balance -875 ml 1000 ml Exam nad, sitting up in bed +scalp martha, clean/dry/intact no mrg lungs clear abd soft no rashes Results Result Diagram: 11/02/16 1035 11/02/16 1035 Medications Medications Current Medications Sodium Chloride (NS) 1,000 ml @ 100 mls/hr Q10H IV Last administered on t 13:51; Admin Dose 100 MLS/HR; Start 11/01/16 at 19:00 Ondansetron HCl (Zofran Inj) 4 mg Q4H PRN IV NAUSEA AND/OR VOMITING; Start at 08:00 Morphine Sulfate (morphine) 2 mg Q4H PRN IM PAIN LEVEL 7-10; Start 11/02/16 at 08:00 Heparin Sodium (Porcine) (Heparin (5000 Units/0.5 ml)) 5,000 unit BID SC Last administered on 11/05/16 09:13; Admin Dose 5,000 UNIT; Start 11/02/16 at 09:00 Pantoprazole (Protonix Iv) 40 mg DAILY@06 IV Last administered on 11/05/16 05: 44; Admin Dose 40 MG; Start 11/03/16 at 06:00 Acetaminophen (Tylenol Tab) 650 mg Q4H PRN PO MILD PAIN LEVEL 1-3; Start at 18:30 Amlodipine Besylate (Norvasc) 5 mg DAILY PO Last administered on 11/05/16 09: 12; Admin Dose 5 MG; Start 11/05/16 at 09:00 Aspirin (Halfprin) 81 mg DAILY PO Last administered on 11/05/16 09:11; Admin Dose 81 MG; Start 11/05/16 at 09:00 Atorvastatin Calcium (Lipitor) 40 mg QHS PO ; Start 11/04/16 at 21:00 Bisacodyl (Dulcolax Supp) 10 mg Q48H NE Last administered on 11/04/16 18:34; Admin Dose 10 MG; Start 11/04/16 at 18:30 Cholecalciferol (Vitamin D) 5,000 unit DAILY PO Last administered on 11/05/16 09:12; Admin Dose 5,000 UNIT; Start 11/05/16 at 09:00 Cyanocobalamin (Vitamin B12) 50 mcg DAILY PO Last administered on 11/05/16 09: 11; Admin Dose 50 MCG; Start 11/05/16 at 09:00 Famotidine (Pepcid) 20 mg DAILY PO Last administered on 11/05/16 09:11; Admin Dose 20 MG; Start 11/05/16 at 09:00 Lactobacillus Acidophilus/ Rhamnosus (Culturelle) 1 cap BID PO Last administered on 11/05/16 09:11; Admin Dose 1 CAP; Start 11/04/16 at 21:00 Senna (Senokot) 1 tab QHS PO ; Start 11/04/16 at 21:00 CAROL GUADARRAMA MD Nov 05, 2016 14:02
[2016-11-05] MEDS: ATORVASTATIN 40 MG TAB PO SCH (20:25)
[2016-11-05] MEDS: SENNA TAB PO SCH (20:25)
--- NOTE | 2016-11-05 21:09 | CONS ---
Date/Time of Note Date/Time of Note DATE: 11/05/16 TIME: 20:54 Assessment/Plan Assessment/Plan Chief Complaint/Hosp Course Acute/subacute CVAs on MRI. Hx of recent ? CVA per ER notes. At baseline neurologically. Continue ASA, statin, keep normotensive, euglycemic. OK to d/c to SNF. Collateral hx could be helpful Problems: Consultation Date/Type/Reason Admit Date/Time Nov 01, 2016 at 17:09 Type of Consultation: neurology Hx of Present Illness hx is per chart, most recent PMD note: "80 yo F with pmhx hypothyroid and HTN admitted for AMS, now reportedly back to baseline? I called the SNF pt was at prior to admission ( [facility]). Per facility, pt is aphasic at baseline. Appears to track to track to voice, only nods to commands/questions, doesn't actually respond meaningfully. Also is basically bedbound". Per ER summary report, "recently recovering from surgery, s/p CVA", also PMHx "CVA thropmbosis left anterior cerebral artery" MRI shows acute/subacute left OMID CVA as well as right pontine lacune. Subjective hx not possible: pt non-verbal Past Medical History Medical History: hypertension, hypothyroid Family History Significant Family History: no pertinent family hx Social History Alcohol Use: none Smoking Status: Current every day smoker Exam/Review of Systems Vital Signs Vitals Vital Signs Date Time Temp Pulse Resp B/P Pulse Ox O2 Delivery O2 Flow Rate FiO2 11/05/16 20:06 98.4 74 17 132/60 98 11/05/16 19:45 Nasal Cannula 2.0 Intake and Output 11/04/16 11/04/16 11/05/16 15:00 23:00 07:00 Intake Total 25 ml 1000 ml Output Total 900 ml Balance -875 ml 1000 ml Exam awake, looks bilaterally, does not follow commands, not verbal, blinks to threat bilaterally, pupils 3-2 to light, sluggish, symmetrical face, corneals and gag +. Increased tone all extremities, spasticity, more on the left, flexed UE, BLE; able to hold RUE against gravity briefly, trace withdrawal LLE to pain. DTR 2 UE, no LE, extensor response to plantar stimulation. Constitutional: non-verbal Head: normocephalic, other (small frontal scar with martha) Eyes: nl conjunctiva Neck: supple Respiratory: clear to auscultation Cardiovascular: regular rate and rhythm Gastrointestinal: soft Results Result Diagram: 11/02/16 1035 11/02/16 1035 Medications Medications Current Medications Sodium Chloride (NS) 1,000 ml @ 100 mls/hr Q10H IV Last administered on 13:51; Admin Dose 100 MLS/HR; Start 11/01/16 at 19:00 Ondansetron HCl (Zofran Inj) 4 mg Q4H PRN IV NAUSEA AND/OR VOMITING; Start at 08:00 Morphine Sulfate (morphine) 2 mg Q4H PRN IM PAIN LEVEL 7-10; Start 11/02/16 at 08:00 Heparin Sodium (Porcine) (Heparin (5000 Units/0.5 ml)) 5,000 unit BID SC Last administered on 11/05/16 20:32; Admin Dose 5,000 UNIT; Start 11/02/16 at 09:00 Pantoprazole (Protonix Iv) 40 mg DAILY@06 IV Last administered on 11/05/16 05: 44; Admin Dose 40 MG; Start 11/03/16 at 06:00 Acetaminophen (Tylenol Tab) 650 mg Q4H PRN PO MILD PAIN LEVEL 1-3; Start at 18:30 Amlodipine Besylate (Norvasc) 5 mg DAILY PO Last administered on 11/05/16 09: 12; Admin Dose 5 MG; Start 11/05/16 at 09:00 Aspirin (Halfprin) 81 mg DAILY PO Last administered on 11/05/16 09:11; Admin Dose 81 MG; Start 11/05/16 at 09:00 Atorvastatin Calcium (Lipitor) 40 mg QHS PO Last administered on 11/05/16 20: 25; Admin Dose 40 MG; Start 11/04/16 at 21:00 Bisacodyl (Dulcolax Supp) 10 mg Q48H MO Last administered on 11/04/16 18:34; Admin Dose 10 MG; Start 11/04/16 at 18:30 Cholecalciferol (Vitamin D) 5,000 unit DAILY PO Last administered on 11/05/16 09:12; Admin Dose 5,000 UNIT; Start 11/05/16 at 09:00 Cyanocobalamin (Vitamin B12) 50 mcg DAILY PO Last administered on 11/05/16 09: 11; Admin Dose 50 MCG; Start 11/05/16 at 09:00 Famotidine (Pepcid) 20 mg DAILY PO Last administered on 11/05/16 09:11; Admin Dose 20 MG; Start 11/05/16 at 09:00 Lactobacillus Acidophilus/ Rhamnosus (Culturelle) 1 cap BID PO Last administered on 11/05/16 20:25; Admin Dose 1 CAP; Start 11/04/16 at 21:00 Senna (Senokot) 1 tab QHS PO Last administered on 11/05/16 20:25; Admin Dose 1 TAB; Start 11/04/16 at 21:00 ALEXIS PEREZ MD Nov 05, 2016 21:06
[2016-11-06] VITALS (11 sets, daily range): BP systolic 136–170; BP diastolic 58–74; PULSE 53–72; RESP 17–19
[2016-11-06] MEDS: SOD CHLORIDE 0.9% 1,000 ML IV SCH (03:10)
[2016-11-06] MEDS: PANTOPRAZOLE 40 MG INJ IV SCH (06:06)
--- NOTE | 2016-11-06 08:42 | DS ---
Date/Time of Note Date/Time of Note DATE: 11/06/16 TIME: 08:42 Discharge Summary Admission/Discharge Info Admit Date/Time Nov 01, 2016 at 17:09 Discharge Date/Time Discharge Diagnosis acute CVA Patient Condition: Stable Consults neurology Procedures MRI brain 7. IMPRESSION: 1. Acute/recent infarct involving the left anterior cerebral artery distribution with diffusion restriction extending from the anterior - superior left frontal lobe posteriorly to the level of the corpus callosum. 2. Acute/recent infarct involving the left splenium of the corpus callosum as well as the paramedian left occipital lobe. 3. Acute/recent infarct involving the right pradip. 4. No intracranial hemorrhage, mass lesion or hydrocephalous. 5. Baseline of moderate peripheral and central cerebral volume loss, with severe asymmetric volume loss involving the medial temporal lobes. This is nonspecific, however may be related to neural degenerative disease such as Alzheimer's disease. 6. Moderate patchy and confluent white matter lesions, likely related to chronic microangiopathic changes. 7. Multiple areas of remote lacunar infarcts involving the bilateral ganglia and right cerebellar hemisphere and left belle radiata white matter. Hx of Present Illness 80-year-old female past medical history of Chronic encephalopathy, previous stroke, bedbound state, hypothyroidism, hypertension, recent scalp laceration post stapling, who presents with acute on chronic encephalopathy, now improved. Hospital Course 80 yo F with pmhx hypothyroid and HTN admitted for AMS, neuroimaging with evidence of several recent strokes. Pt seen by neurology who advised BG and BP control, pt already on asa, statin. Pt aphasic and bedbound at baseline per SNF thus pt was back to baseline within 48 hours of admission. Regarding pt's scalp matrha unclear from documentation when those were placed as they were present when pt arrived in the ER 7.. Defer to SNF for when they can be removed. Home Meds Reported Medications Cholecalciferol (Vitamin D3) 5,000 Unit Tablet, 5000 UNIT PO DAILY, TAB 11/01/16 Acetaminophen* (Tylenol*) 325 Mg Tablet, 650 MG PO Q4H Y for MILD PAIN LEVEL 1-3 , TAB OR T>100F 11/01/16 Tramadol Hcl* (Ultram*) 50 Mg Tablet, 50 MG PO Q4H Y for PAIN LEVEL 4-6/10, TAB AND Q DAY FOR PRIOR TO WOUND CARE 11/01/16 Sennosides* (Senna Lax*) 8.6 Mg Tablet, 1 TAB PO QHS, TAB HOLD IF>2LARGE BMS/DAY 11/01/16 Levothyroxine Sodium* (Levothyroxine Sodium*) 50 Mcg Tablet, 50 MCG PO BEFORE BREAKFAST, #30 TAB 11/01/16 Lactobacillus Rhamnosus* (Culturelle*) 1 Each Cap.sprink, 1 CAP PO BID, CAP 11/01/16 Na Phos,M-B/Na Phos,Di-Ba (Fleet Enema Extra) 230 Ml Enema, 118 ML RC Q72H, ENEMA 11/01/16 Famotidine* (Famotidine*) 20 Mg Tablet, 20 MG PO DAILY, #30 TAB 11/01/16 Cyanocobalamin* (Vitamin B-12*) 50 Mcg Tablet, 50 MCG PO DAILY, TAB 11/01/16 Bisacodyl* (Bisacodyl*) 10 Mg Supp, 10 MG NC Q48H, SUPP 11/01/16 Atorvastatin* (Atorvastatin*) 40 Mg Tablet, 40 MG PO QHS, #30 TAB 11/01/16 Aspirin* (Aspirin* EC) 81 Mg Tablet.dr, 81 MG PO DAILY, TAB 11/01/16 Amlodipine Besylate* (Norvasc*) 5 Mg Tablet, 5 MG PO DAILY, TAB HOLD IF SBP<110 OR HR<60 11/01/16 Follow-up Plan as per SNF scalp martha should be removed in 7 days Primary Care Provider Bill Crain Time spent on discharge: > 30 minutes CAROL GUADARRAMA MD Nov 06, 2016 08:42
[2016-11-06] MEDS: AMLODIPINE 5 MG TAB PO SCH (09:00)
[2016-11-06] MEDS: CYANOCOBALAMIN 100 MCG TAB PO SCH (09:00)
[2016-11-06] MEDS: FAMOTIDINE 20 MG TAB PO SCH (09:00)
[2016-11-06] MEDS: LACTOBACILLUS RHAMNOSUS CAP PO SCH (09:00)
[2016-11-06] MEDS: ASPIRIN (EC) 81 MG TAB PO SCH (09:00)
[2016-11-06] MEDS: CHOLECALCIFEROL 1,000 UNIT TAB PO SCH (09:00)
[2016-11-06] MEDS: HEPARIN 5,000 UNIT/0.5 ML VIAL SC SCH (10:00)
== END 2016-11-06 19:28 | DRG 64 ==
LOC: E/R 14:11 → INTOOBSV 17:09 → MS4 17:09 → OBSVTOIN 17:09 → MS4 23:02
PROVIDERS: ADMIT Internal Medicine; ATTEND Internal Medicine
DX: I63.522 Cerebral infarction due to unspecified occlusion or stenosis of left anterior cerebral artery (principal); R53.2 Functional quadriplegia; G93.49 Other encephalopathy; E86.0 Dehydration; I63.8 Other cerebral infarction; I10 Essential (primary) hypertension; E03.9 Hypothyroidism, unspecified; S01.01XD Laceration without foreign body of scalp, subsequent encounter; X58.XXXD Exposure to other specified factors, subsequent encounter; Z86.73 Personal history of transient ischemic attack (TIA), and cerebral infarction without residual deficits; Z74.01 Bed confinement status
CPT/HCPCS: 36415; 36600; 70450; 70551; 71010; 80048; 80053; 80061; 81001; 81003; 82140; 82803; 82962; 83036; 83690; 83735; 84100; 84439; 84443; 84484; 85025; 85610; 87040; 87086; 92526; 92610; 93005; 93306; 93880; 97110; 97162; 97530; C9113; J1644; J3420; J7030